=== PATIENT | female | born 1955 | race Hispanic/Latino ===

== ENCOUNTER → 2019-10-29 | Outpatient (CLI) | payer MEDICARE ==
[~2019-10-29] MED LIST: REGADENOSON 0.4 MG/5 ML SYR IV ONE
--- NOTE | 2019-10-30 04:58 | Myoview Stress Test ---
DATE OF STUDY: 10/29/2019 08:27:00 Stress Test - Treadmill ONLY PROCEDURE TITLE: Rest/stress single isotope SPECT imaging with pharmacologic stress and gated SPECT imaging. INDICATION: Chest pain PROCEDURE IN DETAIL: Pharmacologic stress testing was performed with regadenoson per protocol. The heart rate was 53 beats per minute at rest, increased to 62 beats per minute during the regadenoson infusion. The resting blood pressure was 149/64 mmHg and decreased to 127/56 mmHg, which is normal response. The resting electrocardiogram demonstrated normal sinus rhythm. There were no ST-segment changes suggestive of myocardial ischemia. Next, myocardial perfusion imaging was performed at rest following the injection of 11 mCi of tetrofosmin. At peak pharmacologic effect, the patient was injected with 33 mCi of tetrofosmin. Gated post-stress tomographic imaging was performed. FINDINGS: The overall quality of study is fair. Left ventricular cavity is noted to be normal size on the rest and stress studies. SPECT images demonstrate homogeneous tracer distribution throughout the myocardium. Gated SPECT imaging reveals normal myocardial thickening and wall motion. The left ventricular ejection fraction was calculated to be 61%. IMPRESSION: Myocardial perfusion imaging is normal. Overall, left ventricular systolic function is normal without regional wall motion abnormalities. Temitope Appiah MD ABS/MODL /[id number]
== END ==
LOC: NM 08:16
PROVIDERS: ATTEND Internal Medicine Cardiovascular Disease
DX: R07.9 Chest pain, unspecified (principal)
CPT/HCPCS: 78452; 93017; 93306; A9502; J2785